=== PATIENT | male | born 1990 | race Two or more races ===

== ENCOUNTER 2016-11-30 08:57 | Emergency (ER) | payer MEDICAID ==
[~2016-11-30] VITALS: Ht 190.5 cm; Wt 95.3 kg
[2016-11-30 10:16] VITALS: BP 133/66
== END 2016-11-30 11:53 | disposition home or self-care (01) ==
LOC: ER 08:57
DX: S39.012A Strain of muscle, fascia and tendon of lower back, initial encounter (principal); F12.10 Cannabis abuse, uncomplicated; X58.XXXA Exposure to other specified factors, initial encounter; Y93.89 Activity, other specified; Y99.8 Other external cause status; Y92.89 Other specified places as the place of occurrence of the external cause

== ENCOUNTER 2017-01-11 06:54 | Emergency (ER) | payer MEDICAID ==
[~2017-01-11] VITALS: Ht 188 cm; Wt 89.8 kg
[2017-01-11 07:18] VITALS: BP 141/75
== END 2017-01-11 07:51 | disposition home or self-care (01) ==
LOC: ER 06:54
DX: K02.9 Dental caries, unspecified (principal); F12.10 Cannabis abuse, uncomplicated

== ENCOUNTER 2017-02-02 06:33 | Emergency (ER) | payer MEDICAID ==
[~2017-02-02] VITALS: Ht 188 cm; Wt 95.3 kg
[2017-02-02 07:21] VITALS: BP 131/79
== END 2017-02-02 08:03 | disposition home or self-care (01) ==
LOC: ER 06:40
DX: K21.9 Gastro-esophageal reflux disease without esophagitis (principal); I10 Essential (primary) hypertension; F41.9 Anxiety disorder, unspecified; F12.10 Cannabis abuse, uncomplicated

== ENCOUNTER 2017-02-23 06:15 | Emergency (ER) | payer MEDICAID ==
[~2017-02-23] VITALS: Ht 188 cm; Wt 93.0 kg
[2017-02-23 06:31] VITALS: BP 132/75
== END 2017-02-23 08:10 | disposition home or self-care (01) ==
LOC: ER 06:15
DX: J02.9 Acute pharyngitis, unspecified (principal); I10 Essential (primary) hypertension; R51 Headache
CPT/HCPCS: 81002

== ENCOUNTER 2017-03-10 06:31 | Emergency (ER) | payer MEDICAID ==
[~2017-03-10] VITALS: Ht 182.9 cm; Wt 92.5 kg
[2017-03-10 07:32] VITALS: BP 102/77
== END 2017-03-10 08:32 | disposition home or self-care (01) ==
LOC: ER 06:31
DX: S46.912A Strain of unspecified muscle, fascia and tendon at shoulder and upper arm level, left arm, initial encounter (principal); I10 Essential (primary) hypertension; X50.9XXA Other and unspecified overexertion or strenuous movements or postures, initial encounter; Y93.89 Activity, other specified; Y92.89 Other specified places as the place of occurrence of the external cause; Y99.8 Other external cause status

== ENCOUNTER 2017-05-23 07:33 | Emergency (ER) | payer MEDICAID, OTHER ==
[~2017-05-23] VITALS: Ht 188 cm; Wt 86.2 kg
[2017-05-23 07:54] VITALS: BP 121/71
== END 2017-05-23 08:37 | disposition home or self-care (01) ==
LOC: ER 07:33
DX: K52.9 Noninfective gastroenteritis and colitis, unspecified (principal); I10 Essential (primary) hypertension

== ENCOUNTER 2017-06-30 06:30 | Emergency (ER) | payer OTHER ==
[~2017-06-30] VITALS: Ht 193 cm; Wt 90.7 kg
[2017-06-30 07:24] VITALS: BP 132/73
== END 2017-06-30 07:59 | disposition home or self-care (01) ==
LOC: ER 06:31
DX: J02.9 Acute pharyngitis, unspecified (principal); I10 Essential (primary) hypertension

== ENCOUNTER 2017-11-11 09:15 | Emergency (ER) | payer OTHER ==
[~2017-11-11] VITALS: Ht 188 cm; Wt 90.7 kg
[2017-11-11 09:36] VITALS: BP 125/69
== END 2017-11-11 10:36 | disposition home or self-care (01) ==
LOC: ER 09:19
DX: J20.9 Acute bronchitis, unspecified (principal); I10 Essential (primary) hypertension; F12.10 Cannabis abuse, uncomplicated
CPT/HCPCS: 71046

== ENCOUNTER 2018-03-28 12:22 | Emergency (ER) | payer OTHER ==
[~2018-03-28] VITALS: Ht 185.4 cm; Wt 90.7 kg
[2018-03-28 12:33] VITALS: BP 133/78
== END 2018-03-28 15:01 | disposition home or self-care (01) ==
LOC: ER 12:24
DX: J02.9 Acute pharyngitis, unspecified (principal); H66.91 Otitis media, unspecified, right ear; H60.91 Unspecified otitis externa, right ear; Z76.0 Encounter for issue of repeat prescription; I10 Essential (primary) hypertension; F12.10 Cannabis abuse, uncomplicated

== ENCOUNTER 2018-07-18 07:53 | Emergency (ER) | payer OTHER ==
[~2018-07-18] VITALS: Ht 188 cm; Wt 104.3 kg
[2018-07-18 08:35] LABS: Basophils # (auto) 0.1 uL; Eosinophils # (auto) 0.1 uL; Eosinophils % (auto) 2.3 % (0.0-7.0); Hematocrit 48.5 % (41.0-53.0); Hemoglobin 16.5 g/dL (13.5-17.5); Lymphocytes # (auto) 1.9 uL; Lymphocytes % (auto) 31.4 % (10.0-50.0); Mean Corpuscular Hemoglobin 30.3 pg (28.0-32.0); Mean Corpuscular Hgb Conc. 34.1 g/dL (32.0-36.0); Monocytes # (auto) 0.4 uL; Neutrophils # (auto) 3.6 uL; Neutrophils % (auto) 58.3 % (37.0-80.0); Nucleated Red Blood Cells % 0.2 %; Platelet Count (auto) 244 10^3/uL (140-450); Red Blood Cells 5.45 10^6/uL (4.5-5.90); Red Cell Distribution Width 12.9 % (11.8-14.3); White Blood Cell 6.1 10^3/uL (4.4-10.8)
[2018-07-18 08:46] LABS: Albumin 4.2 g/dL (3.4-5.0); Amylase 95 U/L (25-115); Anion Gap 7 (5-15); Aspartate Aminotransferase 12 U/L (15-37); BUN/Creatinine Ratio 17.9; Blood Urea Nitrogen 17 mg/dL (7-18); Calcium 8.9 mg/dL (8.5-10.1); Carbon Dioxide 28 mmol/L (21-32); Chloride 102 mmol/L (98-107); GFR African American > 60 mL/min; GFR Non-African American > 60 mL/min; Glucose 107 mg/dL (74-106); Lipase 134 U/L (73-393); Potassium 4.1 mmol/L (3.5-5.1); Sodium 137 mmol/L (136-145)
[2018-07-18 08:48] LABS: Alanine Aminotransferase 24 U/L (16-61); Alkaline Phosphatase 57 U/L (45-117); Bilirubin, Total 0.6 mg/dL (0.2-1.0)
[2018-07-18 08:55] LABS: Urine Bacteria NONE SEEN /hpf (None Seen); Urine Blood TRACE /uL (Negative); Urine Specific Gravity 1.023 (1.001-1.035); Urine WBC <1 /hpf (0 - 3)
[2018-07-18 09:02] VITALS: BP 130/80
== END 2018-07-18 09:13 | disposition home or self-care (01) ==
LOC: ER 07:53
DX: S39.011A Strain of muscle, fascia and tendon of abdomen, initial encounter (principal); I10 Essential (primary) hypertension; X58.XXXA Exposure to other specified factors, initial encounter; Y93.89 Activity, other specified; Y99.8 Other external cause status; Y92.89 Other specified places as the place of occurrence of the external cause
CPT/HCPCS: 36415; 74176; 80053; 81001; 82150; 83690; 85025